=== PATIENT | female | born 1990 | race Caucasian/White ===

== ENCOUNTER 2021-12-18 11:18 | Emergency (ER) | payer OTHER, SELFPAY ==
[2021-12-18 11:44] VITALS: BP 107/52; PULSE 81; RESP 18; TEMP 36.8; O2SAT 99
--- NOTE | 2021-12-18 12:43 | ED.GENADULT ---
HPI - General Adult General Chief complaint: Upper Respiratory Infection Stated complaint: Sore Throat History of Present Illness HPI narrative: 31 y/o female. PMHx non-contributory. Presents to [facility] today with acute complaints of sore throat, and 'patches' in her throat, for the past 48 hours. -Mild nasal congestion. -No cough, chest congestion, dyspnea. -No fevers. -No neck pain, dysphagia, involuntary drooling. Mild reliefs with home OTC remedies. No additional acute c/o upon PE. Related Data Home Medications Medication Instructions Recorded Confirmed levonorgestrel 20 mcg/24 hours (8 See Rx Instructions .Route .COMPLEX 12/18/21 12/18/21 yrs) 52 mg intrauterine device (Mirena) Allergies Allergy/AdvReac Type Severity Reaction Status Date / Time Penicillins AdvReac Mild Hives Verified 12/18/21 11:58 Review of Systems Review of Systems: CONSTITUTIONAL: Denies fever, chills, sweats. EYES: Denies visual changes, redness, discharge. ENT: + rhinorrhea, sore throat. No otalgia. CARDIOVASCULAR: Denies chest pain, palpitations, edema. RESPIRATORY: Denies dyspnea, wheezing, cough GASTROINTESTINAL: Denies abdominal pain, nausea, vomiting, diarrhea. Remainder of ROS Reviewed: Negative. Exam Narrative: GENERAL: This is a well-nourished, well-developed adult, in no apparent distress. HEAD: normocephalic, atraumatic. EYES: PERRL. Sclera clear/white. EARS: External ears normal, auditory canals clear and without drainage, TMs normal. NOSE: External nose normal. Positive Rhinorrhea, no obstruction, nares patent. THROAT: Mucous membranes moist, posterior pharynx is erythematous w/exudative changes. No gross swelling or airway compromise. NECK: Neck supple, non-tender without lymphadenopathy, masses or thyromegaly. CARDIOVASCULAR: Regular rate and rhythm. RESPIRATORY: Clear to auscultation. Breath sounds equal bilaterally. GASTROINTESTINAL: Abdomen soft. SKIN:? no suspicious lesions or rash. NEURO: Alert, active, and age appropriate. Course Course Level of Care: Express Care Visit Vital Signs Vital signs: Vital Signs Temperature 36.8 C 12/18/21 11:44 Pulse Rate 81 12/18/21 11:44 Respiratory Rate 18 12/18/21 11:44 Blood Pressure 107/52 L 12/18/21 11:44 Pulse Oximetry 99 12/18/21 11:44 Oxygen Delivery Room Air 12/18/21 11:44 Temperature 36.8 C 12/18/21 11:44 Pulse Rate 81 12/18/21 11:44 Respiratory Rate 18 12/18/21 11:44 Blood Pressure 107/52 L 12/18/21 11:44 Pulse Oximetry 99 12/18/21 11:44 Oxygen Delivery Room Air 12/18/21 11:44 Medical Decision Making MDM Narrative Medical decision making narrative: -Rapid Strep negative. However, based upon PE findings, she will be covered with appropriate ATB regimen pending Cx. -May resume all additional home & OTC remedies as needed for symptomatic reliefs. -May DC ATB regimen, of CX analysis is indeed negative. -PCP F/U 1WK. -ER W/Emergent status changes. Pt agrees. Differential Diagnosis Differential Diagnosis: Differential Diagnosis: Consideration of the following conditions may be warranted for the presenting problem, they are not final diagnoses: upper respiratory infection, otitis media, sinusitis, RSV viral infection, bronchitis, pharyngitis, Streptococcal sore throat, COVID-19, and other. Vital Signs Vital Signs: Vital Signs Temperature 36.8 C 12/18/21 11:44 Pulse Rate 81 12/18/21 11:44 Respiratory Rate 18 12/18/21 11:44 Blood Pressure 107/52 L 12/18/21 11:44 Pulse Oximetry 99 12/18/21 11:44 Oxygen Delivery Room Air 12/18/21 11:44 Temperature 36.8 C 12/18/21 11:44 Pulse Rate 81 12/18/21 11:44 Respiratory Rate 18 12/18/21 11:44 Blood Pressure 107/52 L 12/18/21 11:44 Pulse Oximetry 99 12/18/21 11:44 Oxygen Delivery Room Air 12/18/21 11:44 Lab Data Labs: Strep Screen Presumptive Negative
== END 2021-12-18 12:25 | disposition home or self-care (01) ==
PROVIDERS: Emergency Provider Nurse Practitioner Adult Health; PCP Family Medicine
DX: J02.9 Acute pharyngitis, unspecified (principal)
CPT/HCPCS: 87081; 87880; 99203; G0463